=== PATIENT | female | born 1965 | race Two or more races ===

== ENCOUNTER 2021-04-23 07:35 | Outpatient (REF) | payer OTHER, SELFPAY | END 2021-04-23 07:36 | disposition home or self-care (01) | LOC: HO.LAB 07:35 | PROVIDERS: Visit Provider Internal Medicine | DX: Z20.822 Contact with and (suspected) exposure to COVID-19 (principal) | CPT/HCPCS: C9803; U0003; U0005 ==

== ENCOUNTER 2021-07-09 07:55 | Outpatient (REF) | payer OTHER, SELFPAY | END 2021-07-09 07:56 | disposition home or self-care (01) | LOC: HO.LAB 07:55 | PROVIDERS: PCP Physician Assistant Medical; Visit Provider Internal Medicine | DX: Z20.822 Contact with and (suspected) exposure to COVID-19 (principal) | CPT/HCPCS: C9803; U0003; U0005 ==